=== PATIENT | female | born 1980 | race Caucasian/White ===

== ENCOUNTER 2024-05-30 17:45 | Emergency (ER) | payer SELFPAY ==
[~2024-05-30] VITALS: Ht 170.2 cm; Wt 72.6 kg
[2024-05-30 18:35] VITALS: PULSE 76; RESP 16; TEMP 98.4
[2024-05-30 21:03] VITALS: BP 126/84; PULSE 74; RESP 18; TEMP 98.3; O2SAT 98
== END 2024-05-30 19:00 | disposition home or self-care (01) ==
LOC: ER 18:58
DX: R20.0 Anesthesia of skin (principal); G43.909 Migraine, unspecified, not intractable, without status migrainosus
CPT/HCPCS: 99283

== ENCOUNTER 2024-06-21 10:32 | Emergency (ER) | payer SELFPAY ==
[~2024-06-21] VITALS: Ht 170.2 cm; Wt 72.6 kg
[2024-06-21 10:45] VITALS: PULSE 70; RESP 16; TEMP 98.4; O2SAT 100
[2024-06-21] MEDS: SODIUM CHLORIDE 0.9% 1000ML 1,000 ML IV STA (11:20)
[2024-06-21] MEDS: DIPHENHYDRAMINE HCL INJ 50 MG/ML VIAL IV ONE (11:20)
[2024-06-21] MEDS: KETOROLAC TROMETHAMINE 30 MG/ML VIAL IV STA (11:20)
[2024-06-21] MEDS: METOCLOPRAMIDE HCL 10 MG/2ML VIAL IV ONE (11:20)
[2024-06-21] MEDS ORDERED: FIORICET 50-301 EACH PO (13:29)
[2024-06-21] MEDS ORDERED: ONDANSETRON ODT4 MG PO (13:29)
== END 2024-06-21 14:06 | disposition home or self-care (01) ==
LOC: ER 10:53
DX: R51.9 Headache, unspecified (principal); R11.2 Nausea with vomiting, unspecified; B20 Human immunodeficiency virus [HIV] disease
CPT/HCPCS: 70450; 99284; J1200; J1885; J2765; J7030